=== PATIENT | male | born 1990 ===

== ENCOUNTER 2021-11-23 12:55 | Emergency (ER) | payer MEDICAID ==
[2021-11-23] MEDS ORDERED: Sodium Chloride 0.9% 2.5 ML Syringe FLUSH PRN (13:23)
[2021-11-23] MEDS ORDERED: fentaNYL 50 MCG/ML SDV IVPUSH ONE ×2 (13:23→15:58)
[2021-11-23] MEDS ORDERED: Ondansetron 4 MG/2 ML SDV IVPUSH ONE (13:23)
[2021-11-23] MEDS ORDERED: Sodium Chloride 0.9% 10 ML Syringe FLUSH PRN (13:23)
[2021-11-23] MEDS ORDERED: Sodium Chloride 0.9% 1,000 ML IV ONE (13:23)
[2021-11-23] MEDS ORDERED: Lidocaine 1% 5 ML VIAL INJECT ONE (13:24)
[2021-11-23 14:34] LABS: CARBON DIOXIDE,CO2 27.2 mmol/L (21.0-32.0); POTASSIUM,K 4.2 mmol/L (3.5-5.1)
[2021-11-23] MEDS ORDERED: Sulfamethoxazole/Trimethoprim 800-160 MG Tab PO ONE (15:59)
[2021-11-23] MEDS ORDERED: Ketorolac 30 MG/ML SDV IVPUSH ONE (15:59)
== END 2021-11-23 17:10 | disposition home or self-care (01) ==
LOC: MW.ED 12:55
DX: L02.31 Cutaneous abscess of buttock (principal); E10.9 Type 1 diabetes mellitus without complications
CPT/HCPCS: 10060; 36415; 80053; 82947; 83605; 85025; 87040; 87070; 87205; 96361; 96374; 96375; 96376; 99283; A9270; J1885; J2405; J3010; J3490; J7030; 87077; 87186; 99284